=== PATIENT | male | born 1960 | race Caucasian/White ===

== ENCOUNTER → 2019-08-21 | Outpatient (CLI) | payer MEDICARE ==
[2019-08-21 10:59] LABS: EOS # 0.1 (0.04-0.40); EOS % 1.6 % (0.0-4.0); HEMATOCRIT 49.8 % (42.0-52.0); HEMOGLOBIN 16.4 g/dL (13.5-18.0); LYMPH# 1.9 (1.50-4.00); MEAN CELL VOLUME 92 fl (78-100); MEAN CORPUSCULAR HEMOGLOBIN 30 pg (27-31); MEAN CORPUSCULAR HGB CONC 33 g/dL (33-37); MEAN PLATELET VOLUME 10.3 fl (7.4-10.4); MONO # 0.8 (0.20-0.80); NEU # 4.1 (1.40-6.50); PLATELET COUNT 228 K/mm3 (130-400); RED BLOOD COUNT 5.41 M/mm3 (4.20-5.60); WHITE BLOOD COUNT 6.9 K/mm3 (4.8-10.8)
[2019-08-21 11:02] LABS: ALBUMIN 4.7 g/dL (3.5-5.0); POTASSIUM 4.5 mmol/L (3.5-5.1)
[2019-08-21 11:03] LABS: CALCIUM 9.8 mg/dL (8.3-10.5)
[2019-08-21 11:05] LABS: TOTAL PROTEIN 8.3 g/dL (6.4-8.3)
[2019-08-21 11:07] LABS: TOTAL BILIRUBIN 0.7 mg/dL (0.2-1.2)
[2019-08-21 12:00] LABS: ERYTHROCYTE SEDIMENTATION RATE 7 mm/hr (0-20)
== END ==
LOC: LAB 10:50
PROVIDERS: Internal Medicine
DX: Z12.5 Encounter for screening for malignant neoplasm of prostate (principal); Z12.11 Encounter for screening for malignant neoplasm of colon; E78.2 Mixed hyperlipidemia; N52.9 Male erectile dysfunction, unspecified; R73.02 Impaired glucose tolerance (oral); R20.2 Paresthesia of skin

== ENCOUNTER → 2020-02-19 | Outpatient (CLI) | payer MEDICARE | LOC: LAB 09:46 | PROVIDERS: Internal Medicine | DX: K90.9 Intestinal malabsorption, unspecified (principal) ==

== ENCOUNTER 2020-12-05 00:45 | Emergency (ER) | payer OTHER, MEDICARE ==
[2020-12-05 01:42] VITALS: BP 109/78
== END 2020-12-05 01:42 ==
LOC: ED 00:45
DX: F10.129 Alcohol abuse with intoxication, unspecified (principal); Z90.49 Acquired absence of other specified parts of digestive tract

== ENCOUNTER → 2021-05-29 | Outpatient (CLI) | payer MEDICARE ==
[2021-05-29 12:41] LABS: HEMATOCRIT 50.6 % (42.0-52.0); HEMOGLOBIN 16.5 g/dL (13.5-18.0); MEAN PLATELET VOLUME 9.7 fl (7.4-10.4); RED BLOOD COUNT 5.43 M/mm3 (4.20-5.60); RED CELL DISTRIBUTION WIDTH 12.5 % (11.5-14.5)
[2021-05-29 12:50] LABS: ALBUMIN 4.4 g/dL (3.4-4.8); POTASSIUM 4.7 mmol/L (3.5-5.1)
[2021-05-29 12:52] LABS: CALCIUM 10.4 mg/dL (8.3-10.5)
[2021-05-29 12:55] LABS: TOTAL BILIRUBIN 0.4 mg/dL (0.2-1.2)
[2021-05-29 13:04] LABS: URINE APPEARANCE CLEAR; URINE BILIRUBIN NEGATIVE (NEGATIVE); URINE BLOOD NEGATIVE (NEGATIVE); URINE COLOR YELLOW; URINE GLUCOSE NEGATIVE (NEGATIVE); URINE KETONE NEGATIVE (NEGATIVE); URINE LEUKOCYTE ESTERASE NEGATIVE (NEGATIVE); URINE NITRATE NEGATIVE (NEGATIVE); URINE PROTEIN(semi-quant) TRACE mg/dL (NEGATIVE); URINE UROBILINOGEN NORMAL (NORMAL); URINE WBC 0-1 /hpf (0-3)
== END ==
LOC: LAB 12:17
PROVIDERS: Internal Medicine
DX: Z01.818 Encounter for other preprocedural examination (principal)

== ENCOUNTER → 2021-06-04 | Outpatient (CLI) | payer MEDICARE | LOC: RAD 12:24 | DX: Z01.818 Encounter for other preprocedural examination (principal) ==

== ENCOUNTER → 2024-06-05 | Outpatient (CLI) | payer MEDICARE ==
[2024-06-05 16:48] LABS: BASO # 0.01 K/mm3 (0.02-0.10); EOS # 0.18 K/mm3 (0.04-0.40); HEMATOCRIT 50.4 % (42.0-52.0); HEMOGLOBIN 16.7 g/dL (13.5-18.0); LYMPH# 1.96 K/mm3 (1.50-4.00); MEAN CELL VOLUME 91 fl (78-100); MEAN CORPUSCULAR HEMOGLOBIN 30 pg (27-31); MEAN CORPUSCULAR HGB CONC 33 g/dL (33-37); MEAN PLATELET VOLUME 9.4 fl (7.4-10.4); MONO # 0.49 K/mm3 (0.20-0.80); NEU # 6.34 K/mm3 (1.40-6.50); PLATELET COUNT 276 K/mm3 (130-400); RED BLOOD COUNT 5.52 M/mm3 (4.20-5.60); RED CELL DISTRIBUTION WIDTH 12.8 % (11.5-14.5)
[2024-06-05 16:50] LABS: ALBUMIN 4.8 g/dL (3.4-4.8)
[2024-06-05 16:53] LABS: TOTAL PROTEIN 8.1 g/dL (6.2-8.1)
[2024-06-05 16:54] LABS: TOTAL BILIRUBIN 0.7 mg/dL (0.2-1.2)
[2024-06-05 23:08] LABS: FOLATE (FOLIC ACID) 10.8 ng/mL (2.0-20.0)
[2024-06-09 05:39] LABS: VITAMIN B1 130.5 nmol/L (())
== END ==
LOC: LAB 16:16
PROVIDERS: Internal Medicine
DX: E78.2 Mixed hyperlipidemia (principal); F41.1 Generalized anxiety disorder; F52.21 Male erectile disorder; R73.9 Hyperglycemia, unspecified; K90.9 Intestinal malabsorption, unspecified

== ENCOUNTER → 2024-06-08 | Outpatient (CLI) | payer MEDICARE ==
[~2024-06-08] MED LIST: Gadoterate 20 ML VIAL IV ONE
== END ==
LOC: RAD 10:28
DX: M50.322 Other cervical disc degeneration at C5-C6 level (principal); I67.82 Cerebral ischemia; M89.38 Hypertrophy of bone, other site; M48.02 Spinal stenosis, cervical region; M50.323 Other cervical disc degeneration at C6-C7 level; M47.812 Spondylosis without myelopathy or radiculopathy, cervical region; Z98.1 Arthrodesis status; Z98.890 Other specified postprocedural states; Z87.828 Personal history of other (healed) physical injury and trauma; Z91.81 History of falling
CPT/HCPCS: A9575

== ENCOUNTER → 2024-08-28 | Outpatient (CLI) | payer MEDICARE | LOC: CARDREHAB 07-16 14:59 | DX: G47.19 Other hypersomnia (principal) | CPT/HCPCS: G0399 ==